=== PATIENT | female | born 1960 | race Caucasian/White ===

== ENCOUNTER → 2016-08-18 | Day surgery (SDC) | payer OTHER ==
[~2016-08-18] MED LIST: ABILIFY PO; ADVAIR 2501 DISK W/D PO; ALBUTEROL17 GM INH; AMBIEN PO; AMLODIPINE BESYL5 MG PO; BACTRIM DS TABL1 TA1 PO; BUSPAR PO; CELEXA20 MG PO; CERTAGEN PO; CLEOCIN PO; CRESTOR PO; CYMBALTA PO; DAPTOMYCIN; EFFEXOR XR PO; FLOMAX0.4 MG PO; HYDROCHLOROTH12.5 M1 PO; LEVAQUIN PO; LOTREL 5/10 MG1 CAP PO; METFORMIN PO; NEURONTIN PO; OXYCODONE HCL15 MG PO; OXYCONTIN60 MG PO; PANTOPRAZOLE SO40 MG PO; PERCOCET5/325 PO; PERCOCET7.5 PO; PHENERGAN PO; POTASSIUM99 M1 PO; PREDNISONE PO; PYRIDIUM PO; RA FISH OIL 1,1 EACH PO; SIMVASTATIN10 MG PO; TOPIRAMATE100 MG PO; TRAZODONE PO; TREXIMET 10-601 EACH; TRICOR PO; ZESTORETIC 10/11 TAB PO; ZINC SULFATE PO; ZITHROMAX PO; ZOCOR PO
--- NOTE | ~2016-08-18 | OR ---
Unit #: [id number] #: [id number] Patient: JAY SALMERON [id number] [address] [id number] O MR#: [id number] NAME: JAY SALMERON ROOM: Date of Procedure: 08/18/2016 Admission Date: 08/18/2016 Surgeon: Laith Briggs M.D. : 1960 Attending Physician: Laith Briggs M.D. Primary Care Physician: Marcus Mensah M.D. OPERATIVE REPORT PREOPERATIVE DIAGNOSES 1. Herniated nucleus pulposus. 2. Back pain. 3. Radiculopathy. POSTOPERATIVE DIAGNOSES 1. Herniated nucleus pulposus. 2. Back pain. 3. Radiculopathy. PROCEDURE PERFORMED Lumbar epidural steroid injection with intravenous sedation and fluoroscopic guidance for needle localization. INDICATIONS FOR PROCEDURE The patient is a 56-year-old female with worsening back and right lower extremity pain secondary to a right-sided disk herniation at L5-S1 level. She has failed to settle with conservative treatment and she is unable to tolerate therapy, so plan is for trial of epidural steroids to help settle the symptoms down and let her progress more aggressively with physical therapy. DESCRIPTION OF PROCEDURE The patient was placed in a seated position. Standard monitors were applied. 2 mg of Versed were given for sedation and anxiolysis, which were adequate. Vital signs remained stable. Sterile prep and drape then of the lumbar area was performed. The skin then at the L5 level was localized with 1% lidocaine. An 18-gauge Hustead needle was then advanced via loss of resistance technique and fluoroscopic guidance in toward the epidural space. After confirming proper positioning with fluoroscopy and radiographic contrast, 80 mg of Depo-Medrol and 4 mL of 0.125% bupivacaine were deposited. The patient tolerated the procedure otherwise well and was discharged to recovery room in stable condition. Dictated by... Laith Briggs M.D. LHP/modl Unit #: [id number] #: [id number] Patient: JAY SALMERON TD: 08/19/2016 03:13 JOB #: [id number] OPERATIVE REPORT Page 1 of 1 X Laith Briggs MD X PROCEDURE OPERATIVE NOTE
== END | disposition home or self-care (01) ==
LOC: CCSC 09:40
DX: M51.16 Intervertebral disc disorders with radiculopathy, lumbar region (principal); I10 Essential (primary) hypertension; E78.00 Pure hypercholesterolemia, unspecified; M19.90 Unspecified osteoarthritis, unspecified site
CPT/HCPCS: J1040; J2250

== ENCOUNTER → 2016-10-06 | Day surgery (SDC) | payer OTHER ==
--- NOTE | ~2016-10-06 | OR ---
Unit #: [id number] #: [id number] Patient: JAY SALMERON [id number] [address] [address] [id number] O MR#: [id number] NAME: JAY SALMERON. ROOM: Date of Procedure: 10/06/2016 Admission Date: 10/06/2016 Surgeon: Laith Briggs M.D. : 1960 Attending Physician: Laith Briggs M.D. Primary Care Physician: Marcus Mensah M.D. OPERATIVE REPORT PREOPERATIVE DIAGNOSES Herniated nucleus pulposus, back pain and radiculopathy. POSTOPERATIVE DIAGNOSES Herniated nucleus pulposus, back pain and radiculopathy. PROCEDURE PERFORMED Lumbar epidural steroid injection with intravenous sedation under fluoroscopic guidance for needle localization. INDICATIONS FOR PROCEDURE The patient is a 56-year-old female with back and right lower extremity pain due to a right-sided L5-S1 disc herniation effacing the right L5 nerve root. The patient failed to settle with conservative treatment. Initial epidural steroid injection was done about a month and half ago, which resulted in 50% settling of her back and leg pain. Based on symptoms, we are going to proceed with a second injection at this point. DESCRIPTION OF PROCEDURE The patient was placed in a seated position. Standard monitors were applied. Then, 2 mg of Versed were given for sedation and anxiolysis, which were adequate. Vital signs remained stable. Sterile prep and drape then of the lumbar area was performed. The skin then at the L5-S1 level was localized with 1% lidocaine. An 18-gauge Raisetead needle was then advanced via loss of resistance technique and fluoroscopic guidance in toward the epidural space. After confirming proper positioning with fluoroscopy and radiographic contrast, 80 mg of Depo-Medrol and 4 mL of 0.125% bupivacaine were deposited. The patient tolerated the procedure otherwise well and was discharged to recovery room in stable condition. Dictated by... Milena Singleton/gilbert TD: 10/06/2016 11:10 JOB #: [id number] Unit #: [id number] #: [id number] Patient: JAY SALMERON OPERATIVE REPORT Page 1 of 1 X Laith Briggs MD X PROCEDURE OPERATIVE NOTE
== END | disposition home or self-care (01) ==
LOC: CCSC 08:27
DX: M51.17 Intervertebral disc disorders with radiculopathy, lumbosacral region (principal)
CPT/HCPCS: J1040; J2250